=== PATIENT | female | born 1955 | race Caucasian/White ===

== ENCOUNTER 2018-02-22 13:36 | Observation (INO) | payer OTHER ==
[2018-02-22 13:57] LABS: ADD MAN DIFF? NO
[2018-02-22 14:01] LABS: BASOPHIL # 0.1 10^3/ul (0.0-0.1); BASOPHILS % 0.6 % (0.0-2.0); EOSINOPHILS # 0.2 10^3/ul (0.0-0.5); EOSINOPHILS % 1.8 % (0.0-7.0); HEMATOCRIT 39.8 % (37.0-47.0); HEMOGLOBIN 12.9 g/dl (12.0-16.0); LYMPHOCYTES # 2.3 10^3/ul (0.8-2.9); LYMPHOCYTES % 26.8 % (15.0-51.0); MEAN CORPUSCULAR HEMOGLOBIN 32.6 pg (29.0-33.0); MEAN CORPUSCULAR HGB CONC 32.4 g/dl (32.0-37.0); MEAN CORPUSCULAR VOLUME 100.5 fl (82.0-101.0); MEAN PLATELET VOLUME 9.8 fl (7.4-10.4); MONOCYTE # 0.6 10^3/ul (0.3-0.9); MONOCYTES % 7.5 % (0.0-11.0); NEUTROPHIL # 5.4 10^3/ul (1.6-7.5); NEUTROPHILS % 62.8 % (39.0-77.0); PLATELET COUNT 306 10^3/UL (140-415); RED BLOOD COUNT 3.96 10^6/ul (4.20-5.40); RED CELL DISTRIBUTION WIDTH 14.6 % (11.5-14.5)
[2018-02-22 14:01] LABS: WHITE BLOOD COUNT 8.6 10^3/ul (4.8-10.8)
[2018-02-22 14:20] LABS: INR 1.16; PT RATIO 1.2
[2018-02-22 14:21] LABS: PARTIAL THROMBOPLASTIN TIME 34.1 Sec (25.0-35.0)
[2018-02-22 14:23] LABS: ANION GAP 16 (8-16); BLOOD UREA NITROGEN 17 mg/dl (7-20); CALCIUM 9.2 mg/dl (8.4-10.2); CARBON DIOXIDE 30 mmol/L (21-31); CHLORIDE 100 mmol/L (97-110); CHOL/HDL RATIO 5.5 RATIO; CHOLESTEROL 211 mg/dl (100-200); CREATININE 0.84 mg/dl (0.44-1.00); GLUCOSE 91 mg/dl (70-220); HDL CHOLESTEROL 38 mg/dl (35-98); LDL CHOLESTEROL,CALCULATED 93 mg/dl; SODIUM 141 mmol/L (135-144); TRIGLYCERIDES 399 mg/dl (0-149)
[2018-02-22 14:28] LABS: HEMOGLOBIN A1C 5.8 % (0-5.9)
[2018-02-22 14:37] LABS: TROPONIN-I < 0.012 ng/ml (0.000-0.120)
[2018-02-22 16:39] LABS: ADD UMIC YES; UR ASCORBIC ACID NEGATIVE (NEGATIVE); UR BILIRUBIN (Dip) NEGATIVE (NEGATIVE); UR BLOOD (Dip) NEGATIVE (NEGATIVE); UR CLARITY CLEAR (CLEAR); UR COLOR YELLOW (YELLOW); UR GLUCOSE (Dip) NEGATIVE (NEGATIVE); UR KETONES (Dip) NEGATIVE (NEGATIVE); UR LEUKOCYTE ESTERASE (Dip) TRACE Leu/ul (NEGATIVE); UR NITRITE (Dip) NEGATIVE (NEGATIVE); UR RBC 0 /HPF (0-5); UR SPECIFIC GRAVITY (Dip) 1.015 (1.003-1.030); UR TOTAL PROTEIN (Dip) NEGATIVE (NEGATIVE); UR UROBILINOGEN (Dip) NEGATIVE (NEGATIVE); UR WBC 2 /HPF (0-5)
[2018-02-22 16:59] LABS: BENZODIAZEPINES Negative (NEGATIVE); OPIATES Negative (NEGATIVE)
[2018-02-22 17:00] LABS: AMPHETAMINE/METHAMPHETAMINE POSITIVE (NEGATIVE); BARBITURATES Negative (NEGATIVE); CANNABINOIDS Negative (NEGATIVE); COCAINE Negative (NEGATIVE)
[2018-02-22] MEDS ORDERED: ACETAMINOPHEN 325 MG TAB PO (17:30)
[2018-02-22] MEDS ORDERED: ONDANSETRON 4 MG INJ IV (17:30)
[2018-02-22] MEDS: ASPIRIN 81 MG TAB PO (17:55)
[2018-02-22] MEDS ORDERED: NACL 0.9% 3 ML SYG IV (19:00)
[2018-02-22] MEDS: NICOTINE (21 MG/24 HR) PATCH TRANSDERM (21:55)
[2018-02-22] MEDS: ATORVASTATIN 40 MG TAB PO (21:55)
[2018-02-22] MEDS: METHADONE 10 MG TAB PO (21:55)
[2018-02-22] MEDS: GABAPENTIN 300 MG CAP PO (21:55)
[2018-02-22] MEDS: DOCUSATE SODIUM 250 MG CAP PO (21:55)
[2018-02-22] MEDS: clonAZEPAM 0.5 MG TAB PO (22:28)
[2018-02-22] MEDS: QUETIAPINE 100 MG TAB PO (22:28)
[2018-02-22] MEDS: MIRTAZAPINE 15 MG TAB PO (22:28)
[2018-02-22] MEDS: PERMETHRIN 5% 60 GM CR TOP (23:30)
[2018-02-23] MEDS ORDERED: PENDING SANTYL ORDER FOR WOUND CARE XX (02:30)
[2018-02-23 05:56] LABS: ADD MAN DIFF? NO
[2018-02-23 06:22] LABS: WHITE BLOOD COUNT 6.9 10^3/ul (4.8-10.8)
[2018-02-23 06:22] LABS: BASOPHILS % 0.6 % (0.0-2.0); EOSINOPHILS # 0.2 10^3/ul (0.0-0.5); EOSINOPHILS % 2.3 % (0.0-7.0); HEMATOCRIT 37.7 % (37.0-47.0); LYMPHOCYTES # 1.7 10^3/ul (0.8-2.9); LYMPHOCYTES % 25.4 % (15.0-51.0); MEAN CORPUSCULAR HEMOGLOBIN 32.5 pg (29.0-33.0); MEAN CORPUSCULAR HGB CONC 31.8 g/dl (32.0-37.0); MEAN CORPUSCULAR VOLUME 102.2 fl (82.0-101.0); MEAN PLATELET VOLUME 10.1 fl (7.4-10.4); MONOCYTE # 0.6 10^3/ul (0.3-0.9); MONOCYTES % 8.3 % (0.0-11.0); NEUTROPHIL # 4.3 10^3/ul (1.6-7.5); NEUTROPHILS % 63.1 % (39.0-77.0); PLATELET COUNT 269 10^3/UL (140-415); RED BLOOD COUNT 3.69 10^6/ul (4.20-5.40); RED CELL DISTRIBUTION WIDTH 14.6 % (11.5-14.5)
[2018-02-23 06:45] LABS: ALANINE AMINOTRANSFERASE 12 IU/L (13-69); ALBUMIN 3.4 g/dl (3.3-4.9); ALBUMIN/GLOBULIN RATIO 1.21; ALKALINE PHOSPHATASE 69 IU/L (42-121); ANION GAP 12 (8-16); ASPARTATE AMINO TRANSFERASE 11 IU/L (15-46); BILIRUBIN,INDIRECT 0.3 mg/dl (0-1.1); BILIRUBIN,TOTAL 0.3 mg/dl (0.2-1.3); BLOOD UREA NITROGEN 20 mg/dl (7-20); CALCIUM 8.9 mg/dl (8.4-10.2); CARBON DIOXIDE 29 mmol/L (21-31); CHLORIDE 106 mmol/L (97-110); CREATININE 0.76 mg/dl (0.44-1.00); GLUCOSE 97 mg/dl (70-220); POTASSIUM 4.2 mmol/L (3.5-5.1); SODIUM 143 mmol/L (135-144); TOTAL PROTEIN 6.2 g/dl (6.1-8.1)
[2018-02-23 07:43] LABS: HEMOGLOBIN A1C 5.8 % (0-5.9)
[2018-02-23] MEDS ORDERED: ENOXAPARIN 30 MG/0.3 ML SYG SC (09:00)
[2018-02-23] MEDS: LEVOTHYROXINE 137 MCG TAB PO (09:49)
[2018-02-23] MEDS: CELECOXIB 200 MG CAP PO (09:50)
[2018-02-23] MEDS: METHADONE 10 MG TAB PO ×2 (09:50→22:07)
[2018-02-23] MEDS: DULOXETINE 30 MG CAP DR PO (09:50)
[2018-02-23] MEDS: OXYBUTYNIN 5 MG TAB PO (09:50)
[2018-02-23] MEDS: DOCUSATE SODIUM 250 MG CAP PO ×2 (09:50→22:06)
[2018-02-23] MEDS: QUETIAPINE 100 MG TAB PO ×3 (09:50→22:06)
[2018-02-23] MEDS: clonAZEPAM 0.5 MG TAB PO ×2 (09:50→22:07)
[2018-02-23] MEDS: GABAPENTIN 300 MG CAP PO ×3 (09:50→22:07)
[2018-02-23] MEDS ORDERED: OXYCODONE/ACETAMINOPHEN (10/325) TAB PO (13:00)
[2018-02-23] MEDS: NEOMYC/POLYMYX/BACIT 30 GM OINT TOP (16:32)
[2018-02-23] MEDS: LORAZEPAM 0.5 MG TAB PO (16:58)
[2018-02-23] MEDS: RIVAROXABAN 20 MG TABLET PO (18:21)
[2018-02-23] MEDS: ATORVASTATIN 40 MG TAB PO (22:07)
[2018-02-23] MEDS: MIRTAZAPINE 15 MG TAB PO (22:09)
[2018-02-24] MEDS ORDERED: ALBUTEROL/IPRATROPIUM (NEB) 3 ML AMP HHN
[2018-02-24] MEDS: LEVOTHYROXINE 137 MCG TAB PO (06:31)
[2018-02-24] MEDS: DULOXETINE 30 MG CAP DR PO (09:46)
[2018-02-24] MEDS: CELECOXIB 200 MG CAP PO (09:47)
[2018-02-24] MEDS: QUETIAPINE 100 MG TAB PO ×2 (09:47→21:53)
[2018-02-24] MEDS: clonAZEPAM 0.5 MG TAB PO ×2 (09:47→21:52)
[2018-02-24] MEDS: METHADONE 10 MG TAB PO ×2 (09:47→21:52)
[2018-02-24] MEDS: OXYBUTYNIN 5 MG TAB PO (09:47)
[2018-02-24] MEDS: GABAPENTIN 300 MG CAP PO ×3 (09:47→21:52)
[2018-02-24] MEDS: DOCUSATE SODIUM 250 MG CAP PO ×2 (09:48→21:53)
[2018-02-24] MEDS: LACTOBACILLUS RHAMNOSUS CAP PO ×2 (15:38→21:53)
[2018-02-24] MEDS: RIVAROXABAN 20 MG TABLET PO (17:39)
[2018-02-24] MEDS: LORAZEPAM 1 MG TAB PO (18:28)
[2018-02-24] MEDS: ATORVASTATIN 40 MG TAB PO (21:53)
[2018-02-25] MEDS: LEVOTHYROXINE 137 MCG TAB PO (06:29)
[2018-02-25] MEDS: LACTOBACILLUS RHAMNOSUS CAP PO (08:56)
[2018-02-25] MEDS: clonAZEPAM 0.5 MG TAB PO (08:56)
[2018-02-25] MEDS: DULOXETINE 30 MG CAP DR PO (08:56)
[2018-02-25] MEDS: GABAPENTIN 300 MG CAP PO ×2 (08:57→13:25)
[2018-02-25] MEDS: METHADONE 10 MG TAB PO (08:57)
[2018-02-25] MEDS: OXYBUTYNIN 5 MG TAB PO (08:57)
[2018-02-25] MEDS: CEPASTAT LOZENGE MT (08:57)
[2018-02-25] MEDS: DOCUSATE SODIUM 250 MG CAP PO (08:57)
[2018-02-25] MEDS: CELECOXIB 200 MG CAP PO (08:57)
[2018-02-25] MEDS: RIVAROXABAN 20 MG TABLET PO (14:48)
== END 2018-02-25 14:52 | disposition home or self-care (01) ==
LOC: E/R 13:36 → MS4 21:08
DX: G56.22 Lesion of ulnar nerve, left upper limb (principal); F32.9 Major depressive disorder, single episode, unspecified; F11.90 Opioid use, unspecified, uncomplicated; F17.200 Nicotine dependence, unspecified, uncomplicated; E03.9 Hypothyroidism, unspecified
CPT/HCPCS: 36415; 70450; 71045; 80048; 80053; 80061; 80307; 81001; 83036; 84484; 85025; 85610; 85730; 87081; 92610; 93005; 97161; 99285-25; G0378

== ENCOUNTER 2018-04-13 11:13 | Emergency (ER) | payer OTHER ==
[2018-04-13] MEDS: SOD CHLORIDE 0.9% 1,000 ML IV (12:18)
[2018-04-13 13:18] LABS: ADD MAN DIFF? NO
[2018-04-13 13:23] LABS: WHITE BLOOD COUNT 8.4 10^3/ul (4.8-10.8)
[2018-04-13 13:23] LABS: BASOPHILS % 0.5 % (0.0-2.0); EOSINOPHILS # 0.1 10^3/ul (0.0-0.5); EOSINOPHILS % 1.6 % (0.0-7.0); HEMATOCRIT 40.3 % (37.0-47.0); HEMOGLOBIN 12.8 g/dl (12.0-16.0); LYMPHOCYTES # 1.6 10^3/ul (0.8-2.9); LYMPHOCYTES % 19.5 % (15.0-51.0); MEAN CORPUSCULAR HEMOGLOBIN 31.1 pg (29.0-33.0); MEAN CORPUSCULAR HGB CONC 31.8 g/dl (32.0-37.0); MEAN CORPUSCULAR VOLUME 97.8 fl (82.0-101.0); MEAN PLATELET VOLUME 10.6 fl (7.4-10.4); MONOCYTE # 0.6 10^3/ul (0.3-0.9); MONOCYTES % 7.3 % (0.0-11.0); NEUTROPHIL # 5.9 10^3/ul (1.6-7.5); NEUTROPHILS % 70.7 % (39.0-77.0); PLATELET COUNT 275 10^3/UL (140-415); RED BLOOD COUNT 4.12 10^6/ul (4.20-5.40); RED CELL DISTRIBUTION WIDTH 13.5 % (11.5-14.5)
[2018-04-13] MEDS: LIDOCAINE 1% (MDV) 20 ML INJ SC (13:40)
[2018-04-13 13:43] LABS: INR 1.27; PROTIME 16.1 Sec (11.9-14.9); PT RATIO 1.3
[2018-04-13 13:54] LABS: ALANINE AMINOTRANSFERASE 15 IU/L (13-69); ALBUMIN 3.4 g/dl (3.3-4.9); ALBUMIN/GLOBULIN RATIO 1.06; ALKALINE PHOSPHATASE 72 IU/L (42-121); ANION GAP 15 (8-16); ASPARTATE AMINO TRANSFERASE 21 IU/L (15-46); BILIRUBIN,INDIRECT 0.2 mg/dl (0-1.1); BILIRUBIN,TOTAL 0.2 mg/dl (0.2-1.3); BLOOD UREA NITROGEN 16 mg/dl (7-20); CALCIUM 9.2 mg/dl (8.4-10.2); CARBON DIOXIDE 21 mmol/L (21-31); CHLORIDE 108 mmol/L (97-110); CREATININE 0.69 mg/dl (0.44-1.00); GLUCOSE 94 mg/dl (70-220); LIPASE 50 U/L (23-300); POTASSIUM 4.6 mmol/L (3.5-5.1); SODIUM 139 mmol/L (135-144); TOTAL PROTEIN 6.6 g/dl (6.1-8.1)
[2018-04-13 14:06] LABS: URINE BLOOD (Dip) POC Negative (NEGATIVE); URINE GLUCOSE (Dip) POC Negative (NEGATIVE); URINE KETONES (Dip) POC Negative (NEGATIVE); URINE LEUKOCYTE EST (Dip) POC Trace (NEGATIVE); URINE NITRITE (Dip) POC Negative (NEGATIVE); URINE TOTAL PROTEIN POC Negative (NEGATIVE)
== END 2018-04-13 15:26 | disposition home or self-care (01) ==
LOC: E/R 11:13
DX: R55 Syncope and collapse (principal); S01.21XA Laceration without foreign body of nose, initial encounter; S09.90XA Unspecified injury of head, initial encounter; S89.91XA Unspecified injury of right lower leg, initial encounter; F12.10 Cannabis abuse, uncomplicated; J44.9 Chronic obstructive pulmonary disease, unspecified; F17.210 Nicotine dependence, cigarettes, uncomplicated; E03.9 Hypothyroidism, unspecified; W18.39XA Other fall on same level, initial encounter; Y92.9 Unspecified place or not applicable; Z85.3 Personal history of malignant neoplasm of breast; Z79.01 Long term (current) use of anticoagulants
CPT/HCPCS: 12013; 36415; 70450; 71045; 72125; 80053; 81003; 83690; 85025; 85610; 93005; 99285-25

== ENCOUNTER 2019-03-13 05:16 | Emergency (ER) | payer OTHER ==
[2019-03-13] MEDS: HALOPERIDOL 5 MG INJ IM (05:25)
[2019-03-13] MEDS: LORAZEPAM 2 MG INJ IM ×2 (05:25→08:29)
[2019-03-13] MEDS: DIPHENHYDRAMINE 50 MG INJ IM (05:25)
[2019-03-13] MEDS ORDERED: HALOPERIDOL 5 MG INJ IM (05:30)
[2019-03-13 05:54] LABS: ADD MAN DIFF? NO
[2019-03-13 05:56] LABS: WHITE BLOOD COUNT 11.9 10^3/ul (4.8-10.8)
[2019-03-13 05:56] LABS: BASOPHILS % 0.3 % (0.0-2.0); EOSINOPHILS # 0.1 10^3/ul (0.0-0.5); HEMATOCRIT 42.7 % (37.0-47.0); HEMOGLOBIN 13.7 g/dl (12.0-16.0); LYMPHOCYTES # 2.2 10^3/ul (0.8-2.9); LYMPHOCYTES % 18.4 % (15.0-51.0); MEAN CORPUSCULAR HEMOGLOBIN 30.5 pg (29.0-33.0); MEAN CORPUSCULAR HGB CONC 32.1 g/dl (32.0-37.0); MEAN CORPUSCULAR VOLUME 95.1 fl (82.0-101.0); MEAN PLATELET VOLUME 9.8 fl (7.4-10.4); MONOCYTE # 0.9 10^3/ul (0.3-0.9); MONOCYTES % 7.9 % (0.0-11.0); NEUTROPHIL # 8.6 10^3/ul (1.6-7.5); NEUTROPHILS % 72.1 % (39.0-77.0); PLATELET COUNT 363 10^3/UL (140-415); RED BLOOD COUNT 4.49 10^6/ul (4.20-5.40); RED CELL DISTRIBUTION WIDTH 14.1 % (11.5-14.5)
[2019-03-13 06:30] LABS: ALANINE AMINOTRANSFERASE 11 IU/L (13-69); ALBUMIN 4.1 g/dl (3.3-4.9); ALBUMIN/GLOBULIN RATIO 1.28; ALKALINE PHOSPHATASE 91 IU/L (42-121); ANION GAP 12 (5-13); ASPARTATE AMINO TRANSFERASE 19 IU/L (15-46); BILIRUBIN,INDIRECT 0.3 mg/dl (0-1.1); BILIRUBIN,TOTAL 0.3 mg/dl (0.2-1.3); BLOOD UREA NITROGEN 25 mg/dl (7-20); CALCIUM 9.4 mg/dl (8.4-10.2); CARBON DIOXIDE 27 mmol/L (21-31); CHLORIDE 106 mmol/L (97-110); CREATININE 0.66 mg/dl (0.44-1.00); Estimated GFR > 60 mL/min (>60); GLUCOSE 125 mg/dl (70-220); SODIUM 145 mmol/L (135-144); TOTAL PROTEIN 7.3 g/dl (6.1-8.1)
[2019-03-13 06:51] LABS: ACETAMINOPHEN < 10.0 ug/ml (10.0-30.0); ETHANOL < 10.0 mg/dl (0-0); SALICYLATE < 1.0 mg/dl (5.0-30.0)
[2019-03-13 07:00] LABS: ADD UMIC NO; UR ASCORBIC ACID NEGATIVE (NEGATIVE); UR BILIRUBIN (Dip) NEGATIVE (NEGATIVE); UR BLOOD (Dip) NEGATIVE (NEGATIVE); UR CLARITY CLEAR (CLEAR); UR COLOR STRAW (YELLOW); UR GLUCOSE (Dip) NEGATIVE (NEGATIVE); UR KETONES (Dip) NEGATIVE (NEGATIVE); UR LEUKOCYTE ESTERASE (Dip) NEGATIVE Leu/ul (NEGATIVE); UR NITRITE (Dip) NEGATIVE (NEGATIVE); UR SPECIFIC GRAVITY (Dip) 1.013 (1.003-1.030); UR TOTAL PROTEIN (Dip) NEGATIVE (NEGATIVE); UR UROBILINOGEN (Dip) NEGATIVE (NEGATIVE)
[2019-03-13] MEDS: ONDANSETRON (ODT) 4 MG TAB ODT (07:19)
[2019-03-13 07:20] LABS: AMPHETAMINE/METHAMPHETAMINE Negative (NEGATIVE); BARBITURATES Negative (NEGATIVE); BENZODIAZEPINES Negative (NEGATIVE); CANNABINOIDS Negative (NEGATIVE); COCAINE Negative (NEGATIVE); OPIATES Negative (NEGATIVE)
== END 2019-03-13 08:30 | disposition home or self-care (01) ==
LOC: E/R 05:16
DX: F41.9 Anxiety disorder, unspecified (principal); D72.829 Elevated white blood cell count, unspecified; R79.89 Other specified abnormal findings of blood chemistry; R11.2 Nausea with vomiting, unspecified; I10 Essential (primary) hypertension; E03.9 Hypothyroidism, unspecified; J44.9 Chronic obstructive pulmonary disease, unspecified; F17.210 Nicotine dependence, cigarettes, uncomplicated; R40.2142 Coma scale, eyes open, spontaneous, at arrival to emergency department; R40.2252 Coma scale, best verbal response, oriented, at arrival to emergency department; R40.2362 Coma scale, best motor response, obeys commands, at arrival to emergency department; Z85.3 Personal history of malignant neoplasm of breast; Z86.73 Personal history of transient ischemic attack (TIA), and cerebral infarction without residual deficits
CPT/HCPCS: 36415; 80053; 80307; 81003; 85025; 93005; 96372; 99285-25